=== PATIENT | female | born 1960 | race Caucasian/White ===

== ENCOUNTER 2020-02-12 14:12 | Outpatient (CLI) | payer OTHER ==
[~2020-02-12 14:12] MED LIST: NEURONTIN300 MG PO; TUSSI-PRES LIQ118 ML PO
== END 2020-02-12 14:23 | disposition home or self-care (01) ==
LOC: NUCLEAR 14:12
DX: M81.0 Age-related osteoporosis without current pathological fracture (principal)

== ENCOUNTER 2021-09-15 10:46 | Outpatient (CLI) | payer OTHER | END 2021-09-15 10:56 | disposition home or self-care (01) | LOC: SONOGRAMA 10:46 | PROVIDERS: ATTEND Podiatrist Foot Surgery | DX: M72.2 Plantar fascial fibromatosis (principal); M77.50 Other enthesopathy of unspecified foot and ankle; M77.30 Calcaneal spur, unspecified foot ==

== ENCOUNTER 2021-12-15 10:35 | Outpatient (CLI) | payer OTHER | END 2021-12-15 10:36 | disposition home or self-care (01) | LOC: NUCLEAR 10:35 | PROVIDERS: ATTEND General Practice | DX: M81.0 Age-related osteoporosis without current pathological fracture (principal) ==

== ENCOUNTER → 2021-12-23 | Outpatient (CLI) | payer OTHER ==
[~2021-12-23] MED LIST changes: +IBU800 MG PO; +NAPROXEN500 MG PO; +NORFLEX100MG PO
== END | disposition home or self-care (01) ==
LOC: NUCLEAR 12-21 07:45
PROVIDERS: ATTEND General Practice
DX: I87.2 Venous insufficiency (chronic) (peripheral) (principal)

== ENCOUNTER 2021-12-28 07:45 | Emergency (ER) | payer OTHER ==
[~2021-12-28] VITALS: Ht 154.9 cm; Wt 79.8 kg
[~2021-12-28 07:45] MED LIST changes: -IBU800 MG PO; -NAPROXEN500 MG PO; -NORFLEX100MG PO
[2021-12-28] MEDS ORDERED: NAPROXEN500 MG PO (10:36)
[2021-12-28] MEDS ORDERED: NORFLEX100MG PO (10:37)
[2021-12-28] MEDS ORDERED: IBU800 MG PO (11:04)
== END 2021-12-28 11:07 | disposition home or self-care (01) ==
LOC: ER 07:45
DX: M25.561 Pain in right knee (principal); M25.562 Pain in left knee

== ENCOUNTER 2022-04-15 13:26 | Outpatient (CLI) | payer OTHER ==
[~2022-04-15 13:26] MED LIST changes: +IBU800 MG PO; +NAPROXEN500 MG PO; +NORFLEX100MG PO
== END 2022-04-15 13:34 | disposition home or self-care (01) ==
LOC: RAD 13:26
DX: M25.551 Pain in right hip (principal); M25.552 Pain in left hip; R10.2 Pelvic and perineal pain

== ENCOUNTER 2022-09-06 11:45 | Outpatient (CLI) | payer OTHER | END 2022-09-06 11:49 | disposition home or self-care (01) | LOC: RAD 11:45 | PROVIDERS: ATTEND Physical Medicine & Rehabilitation | DX: M54.42 Lumbago with sciatica, left side (principal); M51.37 Other intervertebral disc degeneration, lumbosacral region; M25.551 Pain in right hip | CPT/HCPCS: 72148 ==

== ENCOUNTER 2023-07-31 11:12 | Outpatient (CLI) | payer OTHER | END 2023-07-31 13:32 | disposition home or self-care (01) | LOC: MRI 11:12 | PROVIDERS: ATTEND Orthopaedic Surgery | DX: S93.491A Sprain of other ligament of right ankle, initial encounter (principal) | CPT/HCPCS: 73721 ==

== ENCOUNTER 2023-08-23 10:11 | Outpatient (CLI) | payer OTHER | END 2023-08-23 10:26 | disposition home or self-care (01) | LOC: MAMO-SONO 10:11 | PROVIDERS: ATTEND Obstetrics & Gynecology | DX: N64.4 Mastodynia (principal); R10.2 Pelvic and perineal pain; Z12.31 Encounter for screening mammogram for malignant neoplasm of breast ==

== ENCOUNTER 2024-12-06 13:05 | Outpatient (CLI) | payer OTHER | END 2024-12-06 13:08 | disposition home or self-care (01) | LOC: NUCLEAR 13:05 | PROVIDERS: ATTEND General Practice | DX: M81.0 Age-related osteoporosis without current pathological fracture (principal) ==

== ENCOUNTER 2024-12-06 14:10 | Outpatient (CLI) | payer OTHER | END 2024-12-06 14:13 | disposition home or self-care (01) | LOC: RAD 14:10 | PROVIDERS: ATTEND General Practice | DX: M15.0 Primary generalized (osteo)arthritis (principal); M17.0 Bilateral primary osteoarthritis of knee ==

== ENCOUNTER 2025-05-21 10:01 | Outpatient (CLI) | payer OTHER | END 2025-05-21 10:05 | disposition home or self-care (01) | LOC: SONOGRAMA 10:01 | PROVIDERS: ATTEND Obstetrics & Gynecology | DX: R10.2 Pelvic and perineal pain (principal) ==